=== PATIENT | male | born 1955 | race Caucasian/White ===

== ENCOUNTER 2020-03-14 19:56 | Inpatient (IN) | payer MEDICARE ==
[~2020-03-14] VITALS: Ht 182.9 cm; Wt 96.2 kg
[2020-03-14] MEDS ORDERED: AZITHROMYCIN 500MG/NS 250 ML 250 ML IV SCH (20:15)
[2020-03-14] MEDS ORDERED: DEXAMETHASONE SOD PHOS 10 MG/1 ML VIAL IV ONE (20:15)
[2020-03-14] MEDS ORDERED: ASPIRIN 81 MG CHEW TAB PO ONE (20:15)
[2020-03-14 20:54] LABS: BASOPHILS % 0.2 % (0.0-1.0); HEMATOCRIT 47.5 % (38.2-49.6); HEMOGLOBIN 15.7 g/dL (14.0-18.0); LYMPHOCYTES # (AUTO) 0.8 (1.0-3.2); LYMPHOCYTES % 11.7 % (18.0-39.1); MEAN CORPUSCULAR HEMOGLOBIN 28.4 pg (28-32); MEAN CORPUSCULAR HGB CONC 33.1 g/dL (31-35); MEAN CORPUSCULAR VOLUME 86.1 fL (81-99); MONOCYTES # (AUTO) 0.4 (0.2-0.8); MONOCYTES % 6.4 % (4.4-11.3); NEUTROPHILS # (AUTO) 5.2 (2.1-6.9); NEUTROPHILS % 81.1 % (38.7-80.0); PLATELET COUNT 174 x10e3/uL (140-360); RED BLOOD COUNT 5.52 x10e6/uL (4.3-5.7); RED CELL DISTRIBUTION WIDTH 12.8 % (11.7-14.4)
[2020-03-14] MEDS ORDERED: ASPIRIN 81 MG ENTERIC COATED PO ONE (20:57)
[2020-03-14 21:09] LABS: ALANINE AMINOTRANSFERASE 47 IU/L (0-55); ALBUMIN 3.4 g/dL (3.5-5.0); ALBUMIN/GLOBULIN RATIO 0.9 (0.8-2.0); ALKALINE PHOSPHATASE 87 IU/L (40-150); ANION GAP 16.2 mmol/L (8-16); BLOOD UREA NITROGEN 17 mg/dL (7-26); BUN/CREATININE RATIO 18 (6-25); CALCIUM 8.7 mg/dL (8.4-10.2); CARBON DIOXIDE 19 mmol/L (22-29); CHLORIDE 104 mmol/L (98-107); CREATININE, SERUM 0.97 mg/dL (0.72-1.25); EST GLOMERULAR FILTRATION RATE > 60 ML/MIN (60-); GLUCOSE 166 mg/dL (74-118); POTASSIUM 4.2 mmol/L (3.5-5.1); SODIUM 135 mmol/L (136-145)
[2020-03-14] MEDS: AZITHROMYCIN 500MG/NS 250 ML 250 ML IV SCH (21:26)
[2020-03-14 21:33] LABS: ABG HCO3 19 mmol/L (22-26); ABG PCO2 20 mmHg (35-45); ABG PO2 83 mmHg (80-105)
[2020-03-14 21:38] LABS: CREATINE KINASE 80 IU/L (30-200)
[2020-03-14] MEDS ORDERED: LORAZEPAM INJ 2 MG/ML VIAL IV ONE (22:00)
[2020-03-15] VITALS (11 sets, daily range): BP systolic 110–125; BP diastolic 73–80
[2020-03-15] MEDS ORDERED: ACETAMINOPHEN 325 MG TAB PO PRN (01:30)
[2020-03-15] MEDS ORDERED: ONDANSETRON HCL INJ 2MG/ML 2ML 2 MG/ML VIAL IV PRN (01:30)
[2020-03-15] MEDS ORDERED: METOPROLOL SUCC50 MG PO (02:57)
[2020-03-15] MEDS ORDERED: ASPIRIN CHEW81 MG PO (02:57)
[2020-03-15] MEDS ORDERED: PANTOPRAZOLE SO40 MG PO (02:57)
[2020-03-15] MEDS ORDERED: IRBESARTAN150 MG PO (02:57)
[2020-03-15] MEDS ORDERED: FARXIGA10 MG PO (02:57)
[2020-03-15] MEDS ORDERED: PIOGLITAZONE HC15 MG PO (02:57)
[2020-03-15] MEDS ORDERED: CRESTOR10 MG PO (02:57)
[2020-03-15] MEDS ORDERED: TRULICITY1.5 MG/0.5 SQ (02:57)
[2020-03-15] MEDS ORDERED: TRESIBA FL200 UNIT/1 SQ (02:57)
[2020-03-15 05:41] LABS: HEMATOCRIT 45.3 % (38.2-49.6); HEMOGLOBIN 15.4 g/dL (14.0-18.0); LYMPHOCYTES # (AUTO) 0.6 (1.0-3.2); LYMPHOCYTES % 15.4 % (18.0-39.1); MEAN CORPUSCULAR HEMOGLOBIN 29.8 pg (28-32); MEAN CORPUSCULAR VOLUME 87.6 fL (81-99); MONOCYTES # (AUTO) 0.1 (0.2-0.8); MONOCYTES % 3.2 % (4.4-11.3); NEUTROPHILS # (AUTO) 3.2 (2.1-6.9); NEUTROPHILS % 80.7 % (38.7-80.0); PLATELET COUNT 142 x10e3/uL (140-360); RED BLOOD COUNT 5.17 x10e6/uL (4.3-5.7); RED CELL DISTRIBUTION WIDTH 12.8 % (11.7-14.4)
[2020-03-15 06:16] LABS: ALANINE AMINOTRANSFERASE 42 IU/L (0-55); ALBUMIN 3.1 g/dL (3.5-5.0); ALBUMIN/GLOBULIN RATIO 0.8 (0.8-2.0); ALKALINE PHOSPHATASE 81 IU/L (40-150); ANION GAP 14.6 mmol/L (8-16); BLOOD UREA NITROGEN 17 mg/dL (7-26); BUN/CREATININE RATIO 22 (6-25); CALCIUM 8.7 mg/dL (8.4-10.2); CARBON DIOXIDE 21 mmol/L (22-29); CHLORIDE 107 mmol/L (98-107); CREATININE, SERUM 0.78 mg/dL (0.72-1.25); EST GLOMERULAR FILTRATION RATE > 60 ML/MIN (60-); GLUCOSE 141 mg/dL (74-118); POTASSIUM 4.6 mmol/L (3.5-5.1); SODIUM 138 mmol/L (136-145)
[2020-03-15 06:27] LABS: LYMPHOCYTES % (MANUAL) 16 % (19-48); MONOCYTES % (MANUAL) 1 % (3.4-9.0); NEUTROPHILS % (MANUAL) 83 % (40-74)
[2020-03-15 06:28] LABS: PLATELET ESTIMATE ADEQUATE; PLATELET MORPHOLOGY COMMENT NORMAL; RBC MORPHOLOGY COMMENT NORMAL
[2020-03-15 06:41] LABS: CREATINE KINASE 53 IU/L (30-200)
[2020-03-15] MEDS ORDERED: CEFTRIAXONE SOD 1 GM/NS 50 ML 50 ML IV SCH (14:00)
[2020-03-15] MEDS: ALBUTEROL SULFATE HFA 8GM INHALATION AEROSOL INH PRN ×2 (14:31→21:20)
[2020-03-15] MEDS ORDERED: SODIUM CHLORIDE 0.9% 250ML 250 ML ONE (14:33)
[2020-03-15 15:12] LABS: CREATINE KINASE 43 IU/L (30-200)
[2020-03-15] MEDS ORDERED: ENOXAPARIN INJ 80 MG/0.8 ML SYR SC SCH (17:00)
[2020-03-15] MEDS: ENOXAPARIN SOD INJ 40 MG/0.4 ML SYR SC SCH (17:44)
[2020-03-15] MEDS: BUSPIRONE HCL 5 MG TAB PO SCH (17:44)
[2020-03-15] MEDS: DEXAMETHASONE SOD PHOS INJ 4 MG/ML VIAL IV SCH (17:44)
[2020-03-15] MEDS: ASCORBIC ACID 500 MG TAB PO SCH (17:44)
[2020-03-15] MEDS ORDERED: REMDESIVIR 200MG/NS 100ML 200 MG IV ONE (18:00)
[2020-03-15] MEDS ORDERED: LORAZEPAM INJ 2 MG/ML VIAL IV ONE (21:30)
[2020-03-16] VITALS (8 sets, daily range): BP systolic 110–135; BP diastolic 60–80
[2020-03-16 04:48] LABS: BASOPHILS % 0.1 % (0.0-1.0); HEMATOCRIT 46.9 % (38.2-49.6); HEMOGLOBIN 15.4 g/dL (14.0-18.0); LYMPHOCYTES # (AUTO) 1.1 (1.0-3.2); LYMPHOCYTES % 9.7 % (18.0-39.1); MEAN CORPUSCULAR HEMOGLOBIN 28.3 pg (28-32); MEAN CORPUSCULAR HGB CONC 32.8 g/dL (31-35); MEAN CORPUSCULAR VOLUME 86.2 fL (81-99); MONOCYTES # (AUTO) 0.6 (0.2-0.8); MONOCYTES % 5.3 % (4.4-11.3); NEUTROPHILS # (AUTO) 9.1 (2.1-6.9); NEUTROPHILS % 84.1 % (38.7-80.0); PLATELET COUNT 176 x10e3/uL (140-360); RED BLOOD COUNT 5.44 x10e6/uL (4.3-5.7); RED CELL DISTRIBUTION WIDTH 12.9 % (11.7-14.4)
[2020-03-16 05:18] LABS: ALANINE AMINOTRANSFERASE 46 IU/L (0-55); ALBUMIN 3.3 g/dL (3.5-5.0); ALBUMIN/GLOBULIN RATIO 0.9 (0.8-2.0); ALKALINE PHOSPHATASE 77 IU/L (40-150); ANION GAP 14.7 mmol/L (8-16); BLOOD UREA NITROGEN 20 mg/dL (7-26); BUN/CREATININE RATIO 27 (6-25); CALCIUM 8.8 mg/dL (8.4-10.2); CARBON DIOXIDE 22 mmol/L (22-29); CHLORIDE 107 mmol/L (98-107); CREATININE, SERUM 0.74 mg/dL (0.72-1.25); EST GLOMERULAR FILTRATION RATE > 60 ML/MIN (60-); GLUCOSE 162 mg/dL (74-118); POTASSIUM 4.7 mmol/L (3.5-5.1); SODIUM 139 mmol/L (136-145)
[2020-03-16] MEDS ORDERED: ZINC SULFATE 50 MG CAP PO SCH (09:00)
[2020-03-16] MEDS ORDERED: AZITHROMYCIN 500MG/NS 250 ML 250 ML IV SCH (09:00)
[2020-03-16] MEDS: CEFTRIAXONE SOD 2 GM/NS 100 ML 100 ML IV SCH (09:53)
[2020-03-16] MEDS: ZINC SULFATE 220 MG CAP PO SCH (09:53)
[2020-03-16] MEDS: BUSPIRONE HCL 5 MG TAB PO SCH ×2 (09:53→16:42)
[2020-03-16] MEDS: ENOXAPARIN SOD INJ 40 MG/0.4 ML SYR SC SCH ×2 (09:53→16:42)
[2020-03-16] MEDS: ASCORBIC ACID 500 MG TAB PO SCH ×2 (09:53→16:42)
[2020-03-16] MEDS: DEXAMETHASONE SOD PHOS INJ 4 MG/ML VIAL IV SCH (09:53)
[2020-03-16] MEDS: REMDESIVIR 100MG/NS 100ML 100 MG IV SCH (14:47)
[2020-03-16] MEDS: AZITHROMYCIN 500MG/NS 250 ML 250 ML IV SCH (20:00)
[2020-03-16] MEDS: LORAZEPAM 0.5 MG TAB PO PRN (20:00)
[2020-03-17] VITALS (8 sets, daily range): BP systolic 117–130; BP diastolic 72–87
[2020-03-17 04:08] LABS: BASOPHILS % 0.1 % (0.0-1.0); HEMATOCRIT 47.5 % (38.2-49.6); HEMOGLOBIN 15.7 g/dL (14.0-18.0); LYMPHOCYTES # (AUTO) 1.3 (1.0-3.2); LYMPHOCYTES % 12.9 % (18.0-39.1); MEAN CORPUSCULAR HEMOGLOBIN 28.7 pg (28-32); MEAN CORPUSCULAR HGB CONC 33.1 g/dL (31-35); MEAN CORPUSCULAR VOLUME 86.8 fL (81-99); MONOCYTES # (AUTO) 0.6 (0.2-0.8); MONOCYTES % 6.3 % (4.4-11.3); NEUTROPHILS # (AUTO) 7.8 (2.1-6.9); NEUTROPHILS % 79.4 % (38.7-80.0); PLATELET COUNT 212 x10e3/uL (140-360); RED BLOOD COUNT 5.47 x10e6/uL (4.3-5.7)
[2020-03-17 04:25] LABS: ALANINE AMINOTRANSFERASE 56 IU/L (0-55); ALBUMIN 3.4 g/dL (3.5-5.0); ALBUMIN/GLOBULIN RATIO 0.9 (0.8-2.0); ALKALINE PHOSPHATASE 80 IU/L (40-150); ANION GAP 13.5 mmol/L (8-16); BLOOD UREA NITROGEN 19 mg/dL (7-26); BUN/CREATININE RATIO 23 (6-25); CALCIUM 8.8 mg/dL (8.4-10.2); CARBON DIOXIDE 25 mmol/L (22-29); CHLORIDE 107 mmol/L (98-107); CREATININE, SERUM 0.83 mg/dL (0.72-1.25); EST GLOMERULAR FILTRATION RATE > 60 ML/MIN (60-); GLUCOSE 130 mg/dL (74-118); POTASSIUM 4.5 mmol/L (3.5-5.1); SODIUM 141 mmol/L (136-145)
[2020-03-17] MEDS: BUSPIRONE HCL 5 MG TAB PO SCH ×2 (09:21→17:48)
[2020-03-17] MEDS: ZINC SULFATE 220 MG CAP PO SCH (09:21)
[2020-03-17] MEDS: ASCORBIC ACID 500 MG TAB PO SCH ×2 (09:21→17:48)
[2020-03-17] MEDS: ENOXAPARIN SOD INJ 40 MG/0.4 ML SYR SC SCH ×2 (09:21→17:48)
[2020-03-17] MEDS: DEXAMETHASONE SOD PHOS INJ 4 MG/ML VIAL IV SCH (09:24)
[2020-03-17] MEDS: CEFTRIAXONE SOD 2 GM/NS 100 ML 100 ML IV SCH (09:24)
[2020-03-17] MEDS: REMDESIVIR 100MG/NS 100ML 100 MG IV SCH (13:40)
[2020-03-17] MEDS: LORAZEPAM 0.5 MG TAB PO PRN (19:54)
[2020-03-17] MEDS: AZITHROMYCIN 500MG/NS 250 ML 250 ML IV SCH (19:54)
[2020-03-18 00:12] VITALS: BP 123/81
[2020-03-18 03:50] LABS: BASOPHILS % 0.2 % (0.0-1.0); HEMATOCRIT 46.2 % (38.2-49.6); HEMOGLOBIN 15.1 g/dL (14.0-18.0); LYMPHOCYTES # (AUTO) 1.4 (1.0-3.2); LYMPHOCYTES % 14.7 % (18.0-39.1); MEAN CORPUSCULAR HEMOGLOBIN 28.4 pg (28-32); MEAN CORPUSCULAR HGB CONC 32.7 g/dL (31-35); MEAN CORPUSCULAR VOLUME 86.8 fL (81-99); MONOCYTES # (AUTO) 0.8 (0.2-0.8); MONOCYTES % 8.1 % (4.4-11.3); NEUTROPHILS % 75.2 % (38.7-80.0); PLATELET COUNT 187 x10e3/uL (140-360); RED BLOOD COUNT 5.32 x10e6/uL (4.3-5.7); RED CELL DISTRIBUTION WIDTH 12.8 % (11.7-14.4)
[2020-03-18 04:00] VITALS: BP 123/80
[2020-03-18 04:12] LABS: ALANINE AMINOTRANSFERASE 77 IU/L (0-55); ALBUMIN 3.2 g/dL (3.5-5.0); ALBUMIN/GLOBULIN RATIO 0.9 (0.8-2.0); ALKALINE PHOSPHATASE 73 IU/L (40-150); ANION GAP 12.4 mmol/L (8-16); BLOOD UREA NITROGEN 19 mg/dL (7-26); BUN/CREATININE RATIO 25 (6-25); CALCIUM 8.5 mg/dL (8.4-10.2); CARBON DIOXIDE 23 mmol/L (22-29); CHLORIDE 107 mmol/L (98-107); CREATININE, SERUM 0.75 mg/dL (0.72-1.25); EST GLOMERULAR FILTRATION RATE > 60 ML/MIN (60-); GLUCOSE 116 mg/dL (74-118); POTASSIUM 4.4 mmol/L (3.5-5.1); SODIUM 138 mmol/L (136-145)
[2020-03-18] MEDS: BUSPIRONE HCL 5 MG TAB PO SCH ×2 (08:22→17:20)
[2020-03-18] MEDS: ENOXAPARIN SOD INJ 40 MG/0.4 ML SYR SC SCH ×2 (08:22→17:20)
[2020-03-18] MEDS: ZINC SULFATE 220 MG CAP PO SCH (08:22)
[2020-03-18] MEDS: ASCORBIC ACID 500 MG TAB PO SCH ×2 (08:22→17:20)
[2020-03-18] MEDS: CEFTRIAXONE SOD 2 GM/NS 100 ML 100 ML IV SCH (08:22)
[2020-03-18] MEDS: DEXAMETHASONE SOD PHOS INJ 4 MG/ML VIAL IV SCH (08:22)
[2020-03-18 09:02] VITALS: BP 123/80
[2020-03-18 09:22] VITALS: BP 136/86
[2020-03-18 12:37] VITALS: BP 139/81
[2020-03-18] MEDS: REMDESIVIR 100MG/NS 100ML 100 MG IV SCH (13:51)
[2020-03-18] MEDS: LORAZEPAM 0.5 MG TAB PO PRN (17:20)
[2020-03-18 17:28] VITALS: BP 130/82
== END 2020-03-18 19:00 | disposition home or self-care (01) | DRG 177 ==
LOC: ER 20:02 → ERHOLD 03-15 01:06 → IMCU 03-15 01:40 → OBSVTOIN 03-16 08:09
PROC: XW033E5 Introduction of Remdesivir Anti-infective into Peripheral Vein, Percutaneous Approach, New Technology Group 5 (ICD-10-PCS; principal; 2020-03-16)
PROC: 8E0ZXY6 Isolation (ICD-10-PCS; 2020-03-16)
DX: U07.1 COVID-19 (principal); J15.9 Unspecified bacterial pneumonia; J96.00 Acute respiratory failure, unspecified whether with hypoxia or hypercapnia; E11.9 Type 2 diabetes mellitus without complications; I10 Essential (primary) hypertension; E78.5 Hyperlipidemia, unspecified; F41.9 Anxiety disorder, unspecified; F17.200 Nicotine dependence, unspecified, uncomplicated; I25.10 Atherosclerotic heart disease of native coronary artery without angina pectoris
CPT/HCPCS: 36415; 36600; 71045; 80053; 82550; 82553; 82805; 82948; 83605; 84484; 85025; 87040; 93005; 99285; G0378; J0456; J0696; J1100; J1650; J2060; J7050; U0002